=== PATIENT | male | born 1970 | race Caucasian/White ===

== ENCOUNTER 2017-05-06 12:33 | Emergency (ER) | payer SELFPAY ==
[~2017-05-06] VITALS: Ht 188 cm; Wt 105.2 kg
[~2017-05-06 12:33] MED LIST: AMPH20TA2 PO; DIPH-437 PO; ESCI10TA17 PO; LORA-741 PO; TAMS0.4C38 PO
[2017-05-06 12:36] VITALS: TEMP 36.9; Ht 188 cm; Wt 105.2 kg
--- NOTE | 2017-05-06 13:25 | EMERGENCY ROOM VISIT NOTE ---
ED Visit Note First contact with patient: 12:46 CHIEF COMPLAINT: Skin avulsion of left thumb HISTORY OF PRESENT ILLNESS: Patient is a [id number] 46-year-old white male who presents emergency department for evaluation of a skin avulsion to the left thumb that he sustained just prior to arrival. He was cutting tomatoes, when he accidentally cut the tip of the left thumb. The bleeding has been continuous since then as a steady ooze and won't stop with prolonged direct pressure. There is mild constant pain. REVIEW OF SYSTEMS: Review of systems as per HPI. All other systems reviewed were negative. At least 6 systems reviewed. PMH: Electronic medical records are reviewed and summarized as above/below. See Problem List. Tetanus is up-to-date. SOCIAL HISTORY: Patient lives at home. Employed. Nonsmoker. PHYSICAL EXAM: Vital Signs: Reviewed Nurse's notes. There is a soft tissue skin avulsion of the ulnar aspect tip of the left thumb. There is no nailbed involvement. It is bleeding slowly and steadily and the rate of bleeding is not decreasing after pressure. EMERGENCY DEPARTMENT COURSE: The finger was cleansed thoroughly with saline. Finger tourniquet was applied. Hemostasis was maintained. The skin avulsion was covered with Dermabond 3 layers. Hemostasis was maintained after the tourniquet was removed. Wound care measures were discussed. Medication reconciliation: I attest that I have personally reviewed the patient' s current medication list. Blood pressure screening: Patient was found to have a slightly elevated blood pressure due to circumstances. I do not believe that the patient requires hypertension monitoring. Problem List Medical Problems: (1) Chronic sinusitis Status: Resolved (2) Concussion Status: Resolved (3) Dehydration Status: Chronic (4) Diaphoresis Status: Resolved (5) Flank pain Status: Resolved (6) Flank pain Status: Resolved (7) Fracture of fifth toe, left, closed Status: Resolved (8) Headache Status: Resolved (9) Headache Status: Resolved (10) Kidney stone Status: Chronic (11) Kidney stone Status: Resolved (12) Nephrolithiasis Status: Resolved (13) Palpitations Status: Resolved (14) Stroke Status: Resolved Current/Historical Medications No Active Prescriptions or Reported Meds Allergies Uncoded Allergies: IODINE CONTRAST (Allergy, Severe, ANAPHYLAXIS, 03/03/16) Vital Signs Date Time Temp Pulse Resp B/P (MAP) Pulse Ox O2 Delivery O2 Flow Rate FiO2 9/15/17 12:36 36.9 104 20 142/93 95 Room Air Departure Information Impression Primary Impression: Avulsion of skin of finger Prescriptions No Active Prescriptions or Reported Meds Referrals No Doctor, Assigned (PCP) Patient Instructions ED Laceration Ext Skin Glue, [facility] Additional Instructions Read DermaBond handout. Ice and elevate for swelling and pain. Ibuprofen 600 mg and Tylenol 1000 mg every 6 hrs for pain. Problem Qualifiers Primary Impression: Avulsion of skin of finger Encounter type: initial encounter Qualified Codes: S61.209A - Unspecified open wound of unspecified finger without damage to nail, initial encounter
[2017-05-06 14:20] VITALS: BP 148/115; PULSE 106; O2SAT 94
== END 2017-05-06 14:20 | disposition home or self-care (01) ==
LOC: C.EDB 12:34 → C.EDD 14:20
DX: S61.012A Laceration without foreign body of left thumb without damage to nail, initial encounter (principal); W45.8XXA Other foreign body or object entering through skin, initial encounter; Z87.81 Personal history of (healed) traumatic fracture; Z87.820 Personal history of traumatic brain injury; Z87.442 Personal history of urinary calculi; Z82.3 Family history of stroke; Z91.041 Radiographic dye allergy status

== ENCOUNTER 2018-03-20 06:12 | Emergency (ER) | payer SELFPAY ==
[~2018-03-20] VITALS: Ht 182.9 cm; Wt 112.1 kg
[2018-03-20 06:12] VITALS: TEMP 36.6; Ht 182.9 cm; Wt 112.1 kg
[2018-03-20] MEDS ORDERED: ONDANSETRON INJ 2 MG/ML 2 ML VIAL IV STA (06:38)
[2018-03-20] MEDS ORDERED: KETOROLAC TROMETHAMINE 30 MG/ML VIAL IV STA (06:38)
[2018-03-20] MEDS ORDERED: SODIUM CHLORIDE 0.9% 1000ML 1,000 ML IV STA (06:38)
[2018-03-20] MEDS ORDERED: FENTANYL CITRATE INJ 50 MCG/1 ML 2 ML VIAL IV STA ×2 (06:38→08:43)
[2018-03-20 07:02] LABS: BASO % 0.4 %; BASO ABS # 0.04 K/uL (0-0.2); EOS % 3.1 %; EOS ABS # 0.29 K/uL (0-0.5); HEMATOCRIT 43.1 % (42-52); HEMOGLOBIN 14.6 g/dL (14.0-18.0); IG# 0.04 K/uL (0.00-0.02); LYMPH % 42.3 %; LYMPH ABS # 3.96 K/uL (1.2-3.4); MEAN CELL VOLUME 87.8 fL (80-100); MEAN CORPUSCULAR HEMOGLOBIN 29.7 pg (25-34); MEAN CORPUSCULAR HGB CONC 33.9 g/dl (32-36); MEAN PLATELET VOLUME 10.2 fL (7.4-10.4); MONO % 10.3 %; MONO ABS # 0.96 K/uL (0.11-0.59); NEUT % 43.5 %; NEUT ABS # 4.07 K/uL (1.4-6.5); PLATELET COUNT 230 K/uL (130-400); WHITE BLOOD COUNT 9.36 K/uL (4.8-10.8)
[2018-03-20 07:19] LABS: ALBUMIN 3.6 gm/dl (3.4-5.0); ALKALINE PHOSPHATASE 68 U/L (45-117); ALT/SGPT 30 U/L (12-78); AST/SGOT 20 U/L (15-37); BLOOD UREA NITROGEN 17 mg/dl (7-18); CALCIUM 9.1 mg/dl (8.5-10.1); CARBON DIOXIDE 23 mmol/L (21-32); GLUCOSE 111 mg/dl (70-99); LIPASE 211 U/L (73-393); POTASSIUM 4.1 mmol/L (3.5-5.1); SODIUM 143 mmol/L (136-145); TOTAL PROTEIN 7.1 gm/dl (6.4-8.2)
--- NOTE | 2018-03-20 07:43 | DIAGNOSTIC IMAGING REPORT ---
ABD/PELVIS WITHOUT FOR STONE HISTORY: 47 years-old Male flank pain acute right-sided flank pain with history of kidney stones COMPARISON: Renal ultrasound 02/08/2015, CT abdomen and pelvis 09/21/2013 TECHNIQUE: Multiple axial CT images of the abdomen and pelvis were obtained without the use of IV contrast. A dose lowering technique was used consistent with the principals of JERMAIN. FINDINGS: Mild dependent subsegmental bibasilar atelectasis. No pneumatosis or pneumoperitoneum. Coronary arterial calcifications are noted. Imaged inferior cardiac chambers are otherwise unremarkable. Gallbladder, liver, spleen, pancreas and adrenal glands are unremarkable. Multiple nonobstructing left nephrolithiasis measuring up to 3 mm. There is moderate right-sided hydroureteronephrosis secondary to a 6 x 6 x 6 mm calculus of the mid right ureter seen at the level of L3-L4. Additionally, there is reactive perinephric and periureteral inflammatory stranding. Calcifications of the central prostate. Bladder is unremarkable. Mild calcification of the aorta. Scattered nonenlarged periaortic lymph nodes are likely physiologic. There is no bowel obstruction or focal bowel wall thickening. Mild colonic diverticulosis without diverticulitis. Normal appendix. Stool-filled loops of terminal ileum are noted. The soft tissues are unremarkable. Bones appear to be intact. Multilevel facet arthropathy. Mild intervertebral disc space narrowing with posterior disc osteophyte complex formation at L5-S1. Posterior disc osteophyte complex also seen at L4-L5. IMPRESSION: 1. Moderate right-sided hydroureteronephrosis secondary to a 6 mm calculus of the mid right ureter at the level of L3-L4. 2. Nonobstructing left nephrolithiasis. 3. Colonic diverticulosis without diverticulitis. 4. Normal appendix. 5. Coronary arterial disease. The above report was generated using voice recognition software. It may contain grammatical, syntax or spelling errors. Electronically signed by: Jaime Vergara M.D. 03/20/2018 7:42 AM Dictated Date/Time: 03/20/2018 7:17 AM
[2018-03-20] MEDS ORDERED: OXYC-57 PO (08:33)
[2018-03-20] MEDS ORDERED: TAMS0.4C38 PO (08:33)
--- NOTE | 2018-03-20 08:36 | EMERGENCY ROOM VISIT NOTE ---
History Report prepared by Tatiannaibjose francisco: Uday Salas Under the Supervision of: Dr. Mikal Moraes D.O. First contact with patient: 06:31 Chief Complaint: FLANK PAIN Stated Complaint: FLANK PAIN History of Present Illness The patient is a 47 year old male who presents to the Emergency Room with complaints of waxing and waning right sided flank pain that onset at 0400 this morning, 2.5 hours prior to arrival. The patient states that "I have had kidney stones for a long time." "But this one is just really bad." He states that this morning his pain was an 8/10, and he has been nauseous as well. He did not vomit at all. The patient adds that he has been passing a lot of stones lately. He is from [place] and does not have a urologist in [place]. Source of History: patient Onset: 2.5 hours prior to arrival Position: back (right flank) Symptom Intensity: 8/10 Timing: waxes/wanes Associated Symptoms: + nausea, No vomiting Review of Systems See HPI for pertinent positives & negatives. A total of 10 systems reviewed and were otherwise negative. Past Medical & Surgical Medical Problems: (1) Chronic sinusitis (2) Concussion (3) Dehydration (4) Diaphoresis (5) Flank pain (6) Flank pain (7) Fracture of fifth toe, left, closed (8) Headache (9) Headache (10) Kidney stone (11) Kidney stone (12) Nephrolithiasis (13) Palpitations (14) Stroke Family History FH: heart attack No pertinent family history Social History Smoking Status: Never Smoker Alcohol Use: occasionally Marital Status: Housing Status: lives with significant other Occupation Status: employed Current/Historical Medications No Active Prescriptions or Reported Meds Allergies Coded Allergies: Iodinated Diagnostic Agents (Verified Allergy, Severe, ANAPHYLAXIS, ) Physical Exam Vital Signs Date Time Temp Pulse Resp B/P (MAP) Pulse Ox O2 Delivery O2 Flow Rate FiO2 03/20/18 07:56 57 03/20/18 07:37 59 20 134/94 97 Room Air 03/20/18 07:01 53 20 162/112 94 Room Air 03/20/18 06:12 36.6 61 16 161/109 97 Room Air Physical Exam CONSTITUTIONAL/VITAL SIGNS: Reviewed / noted above. GENERAL: Non-toxic in appearance. INTEGUMENTARY: Warm, dry, and [place]. HEAD: Normocephalic. EYES: without scleral icterus or trauma. ENT/OROPHARYNX: clear and moist. LYMPHADENOPATHY/NECK: Is supple without lymphadenopathy or meningismus. RESPIRATORY: Lungs clear and equal. CARDIOVASCULAR: Regular rate and rhythm. GI/ABDOMEN: Soft. Mild right sided abdominal tenderness. No organomegaly or pulsatile mass. No rebound or guarding. Normal bowel sounds. EXTREMITIES: Warm and well perfused. BACK: There is right CVA tenderness. NEUROLOGICAL: Intact without focal deficits. PSYCHIATRIC: normal affect. MUSCULOSKELETAL: Normally developed with good muscle tone. Medical Decision & Procedures ER Provider Diagnostic Interpretation: Radiology results as stated below per my review and radiologist interpretation: ABD/PELVIS WITHOUT FOR STONE HISTORY: 47 years-old Male flank pain acute right-sided flank pain with history of kidney stones COMPARISON: Renal ultrasound 02/08/2015, CT abdomen and pelvis 09/21/2013 TECHNIQUE: Multiple axial CT images of the abdomen and pelvis were obtained without the use of IV contrast. A dose lowering technique was used consistent with the principals of ALARA. FINDINGS: Mild dependent subsegmental bibasilar atelectasis. No pneumatosis or pneumoperitoneum. Coronary arterial calcifications are noted. Imaged inferior cardiac chambers are otherwise unremarkable. Gallbladder, liver, spleen, pancreas and adrenal glands are unremarkable. Multiple nonobstructing left nephrolithiasis measuring up to 3 mm. There is moderate right-sided hydroureteronephrosis secondary to a 6 x 6 x 6 mm calculus of the mid right ureter seen at the level of L3-L4. Additionally, there is reactive perinephric and periureteral inflammatory stranding. Calcifications of the central prostate. Bladder is unremarkable. Mild calcification of the aorta. Scattered nonenlarged periaortic lymph nodes are likely physiologic. There is no bowel obstruction or focal bowel wall thickening. Mild colonic diverticulosis without diverticulitis. Normal appendix. Stool-filled loops of terminal ileum are noted. The soft tissues are unremarkable. Bones appear to be intact. Multilevel facet arthropathy. Mild intervertebral disc space narrowing with posterior disc osteophyte complex formation at L5-S1. Posterior disc osteophyte complex also seen at L4-L5. IMPRESSION: 1. Moderate right-sided hydroureteronephrosis secondary to a 6 mm calculus of the mid right ureter at the level of L3-L4. 2. Nonobstructing left nephrolithiasis. 3. Colonic diverticulosis without diverticulitis. 4. Normal appendix. 5. Coronary arterial disease. The above report was generated using voice recognition software. It may contain grammatical, syntax or spelling errors. Electronically signed by: Jaime Vergara M.D. 03/20/2018 7:42 AM Dictated Date/Time: 03/20/2018 7:17 AM Laboratory Results 03/20/18 06:50 Red Blood Count 4.91, Mean Corpuscular Volume 87.8, Mean Corpuscular Hemoglobin 29.7, Mean Corpuscular Hemoglobin Concent 33.9, Mean Platelet Volume 10.2, Neutrophils (%) (Auto) 43.5, Lymphocytes (%) (Auto) 42.3, Monocytes (%) (Auto) 10.3, Eosinophils (%) (Auto) 3.1, Basophils (%) (Auto) 0.4, Neutrophils # (Auto ) 4.07, Lymphocytes # (Auto) 3.96, Monocytes # (Auto) 0.96, Eosinophils # (Auto ) 0.29, Basophils # (Auto) 0.04 03/20/18 06:50 Test 03/20/18 06:50 03/20/18 07:25 White Blood Count 9.36 K/uL (4.8-10.8) Red Blood Count 4.91 M/uL (4.7-6.1) Hemoglobin 14.6 g/dL (14.0-18.0) Hematocrit 43.1 % (42-52) Mean Corpuscular Volume 87.8 fL (80-100) Mean Corpuscular Hemoglobin 29.7 pg (25-34) Mean Corpuscular Hemoglobin Concent 33.9 g/dl (32-36) Platelet Count 230 K/uL (130-400) Mean Platelet Volume 10.2 fL (7.4-10.4) Neutrophils (%) (Auto) 43.5 % Lymphocytes (%) (Auto) 42.3 % Monocytes (%) (Auto) 10.3 % Eosinophils (%) (Auto) 3.1 % Basophils (%) (Auto) 0.4 % Neutrophils # (Auto) 4.07 K/uL (1.4-6.5) Lymphocytes # (Auto) 3.96 K/uL (1.2-3.4) Monocytes # (Auto) 0.96 K/uL (0.11-0.59) Eosinophils # (Auto) 0.29 K/uL (0-0.5) Basophils # (Auto) 0.04 K/uL (0-0.2) RDW Standard Deviation 45.0 fL (36.4-46.3) RDW Coefficient of Variation 14.0 % (11.5-14.5) Immature Granulocyte % (Auto) 0.4 % Immature Granulocyte # (Auto) 0.04 K/uL (0.00-0.02) Anion Gap 9.0 mmol/L (3-11) Est Creatinine Clear Calc Drug Dose 120.6 ml/min Estimated GFR () 104.9 Estimated GFR (Non- 90.5 BUN/Creatinine Ratio 16.9 (10-20) Calcium Level 9.1 mg/dl (8.5-10.1) Total Bilirubin 0.3 mg/dl (0.2-1) Direct Bilirubin < 0.1 mg/dl (0-0.2) Aspartate Amino Transf (AST/SGOT) 20 U/L (15-37) Alanine Aminotransferase (ALT/SGPT) 30 U/L (12-78) Alkaline Phosphatase 68 U/L (45-117) Total Protein 7.1 gm/dl (6.4-8.2) Albumin 3.6 gm/dl (3.4-5.0) Lipase 211 U/L (73-393) Urine Color YELLOW Urine Appearance CLEAR (CLEAR) Urine pH 6.0 (4.5-7.5) Urine Specific [place] 1.023 (1.000-1.030) Urine Protein NEG (NEG) Urine Glucose (UA) NEG (NEG) Urine Ketones NEG (NEG) Urine Occult Blood 3+ (NEG) Urine Nitrite NEG (NEG) Urine Bilirubin NEG (NEG) Urine Urobilinogen NEG (NEG) Urine Leukocyte Esterase NEG (NEG) Urine WBC (Auto) 1-5 /hpf (0-5) Urine RBC (Auto) >30 /hpf (0-4) Urine Hyaline Casts (Auto) 1-5 /lpf (0-5) Urine Epithelial Cells (Auto) 5-10 /lpf (0-5) Urine Bacteria (Auto) NEG (NEG) Laboratory results as stated above per my review. Medications Administered Medications (Trade) Dose Ordered Sig/Denisa Route Start Time Stop Time Status Last Admin Dose Admin Sodium Chloride 1,000 ml @ 999 mls/hr Q1H1M STAT IV 03/20/18 06:38 03/20/18 07:38 DC 03/20/18 06:55 999 MLS/HR Fentanyl Citrate (Fentanyl Inj) 100 mcg NOW STAT IV 03/20/18 06:38 03/20/18 06:39 DC 03/20/18 06:55 100 MCG Ondansetron HCl (Zofran Inj) 4 mg NOW STAT IV 03/20/18 06:38 03/20/18 06:39 DC 03/20/18 06:55 4 MG Ketorolac Tromethamine (Toradol Inj) 30 mg NOW STAT IV 03/20/18 06:38 03/20/18 06:39 DC 03/20/18 07:01 30 MG ED Course 0634: Previous medical records were reviewed. The patient was evaluated in room B6. A complete history and physical examination was performed. 0638: Ordered Toradol 30 mg IV, Zofran 4 mg IV, Fentanyl 100 mcg IV, Sodium Chloride 1000 mL @ 999 mL/hr IV. 0830: On reevaluation, the patient is resting in bed. I discussed the results and findings with the patient. He verbalized agreement of the treatment plan. The patient was discharged home. Medical Decision Differential diagnosis: Etiologies such as renal colic, appendicitis, diverticulitis, mesenteric ischemia, aortic pathology, infections, inflammatory bowel disease, PUD, biliary pathology, UTI, as well as others were entertained. This is a 47-year-old male who presents to the ED with a chief complaint of kidney stones. The patient states that he has been passing stones a lot lately. He states today was a severe episode and had to call EMS. EMS provided morphine IV as well as Zofran IV. The patient reports that his pain is on the right side and started around 4 AM. He had associated nausea. Denies any fevers. No other symptoms. Initial blood pressure was elevated at 161/109. The patient states that he is not around here. He is from [place] and does not have [place] and does not have a local urologist or doctor. CT scan revealed a 6 mm calculus in the mid right ureter with some moderate right hydronephrosis. CBC, complete metabolic panel did not show abnormality. Urine showed 3+ blood. He was treated with IV Toradol, IV fentanyl and IV Zofran as well as IV fluids. He was feeling better. He was discharged with a prescription for Percocet. He will continue ibuprofen. Flomax was also prescribed. He states that he has passed stones larger than this. He will return for any concerns or worsening. Medication Reconcilliation Current Medication List: was personally reviewed by me Blood Pressure Screening Patient's blood pressure: Elevated blood pressure Blood pressure disposition: Elevated BP felt to be situational Impression Primary Impression: Renal colic Additional Impression: Ureteral calculus, right Scribe Attestation The scribe's documentation has been prepared under my direction and personally reviewed by me in its entirety. I confirm that the note above accurately reflects all work, treatment, procedures, and medical decision making performed by me. Departure Information Dispostion Home / Self-Care Prescriptions Oxycodone/Acetaminophen 5MG/325MG (PERCOCET 5MG/325MG) Tab 1 TAB PO Q6H Y for Pain, #20 TAB Prov: Mikal Moraes D.O. 03/20/18 Tamsulosin Hcl (FLOMAX) 0.4 Mg Cap 0.4 MG PO HS, #10 CAP Prov: Mikal Moraes D.O. 03/20/18 Referrals No Doctor, Assigned (PCP) Patient Instructions My [facility] Additional Instructions Flomax as prescribed to help stone passage. Percocet as prescribed. No driving within 6 hours of use. Do not take additional Tylenol while taking Percocet. Take ibuprofen every 6 hours as needed for pain. 400-600 mg to be taken. Strain urine for stone. Follow-up with your doctor for further care and evaluation in 1-2 days if not better. Return to the emergency department for worsening or new symptoms or any concerns. You have been examined and treated today on an emergency basis only. This is not a substitute for, or an effort to provide, complete comprehensive medical care. It is impossible to recognize and treat all injuries or illnesses in a single emergency department visit. It is therefore important that you follow up closely with your doctor. Call as soon as possible for an appointment. Problem Qualifiers
[2018-03-20 08:55] VITALS: BP 138/89; PULSE 72; O2SAT 96
== END 2018-03-20 08:59 | disposition home or self-care (01) ==
LOC: EDBD 06:12 → C.EDB 06:13
DX: N13.2 Hydronephrosis with renal and ureteral calculous obstruction (principal); R11.0 Nausea; Z88.8 Allergy status to other drugs, medicaments and biological substances

== ENCOUNTER 2018-04-04 16:46 | Emergency (ER) | payer SELFPAY ==
[~2018-04-04] VITALS: Ht 182.9 cm; Wt 110.2 kg
[~2018-04-04 16:46] MED LIST changes: -AMPH20TA2 PO; -DIPH-437 PO; -ESCI10TA17 PO; -LORA-741 PO; +OXYC-57 PO; -TAMS0.4C38 PO
[2018-04-04 16:50] VITALS: Ht 182.9 cm; Wt 110.2 kg
[2018-04-04] MEDS ORDERED: SODIUM CHLORIDE 0.9% 1000ML 1,000 ML IV STA (17:00)
[2018-04-04] MEDS ORDERED: ONDANSETRON INJ 2 MG/ML 2 ML VIAL IV STA (17:03)
[2018-04-04] MEDS ORDERED: FENTANYL CITRATE INJ 50 MCG/1 ML 2 ML VIAL IV STA (17:03)
--- NOTE | 2018-04-04 17:18 | EMERGENCY ROOM VISIT NOTE ---
History First contact with patient: 16:52 Chief Complaint: KIDNEY STONE Stated Complaint: KIDNEY STONE History of Present Illness The patient is a 47 year old male who presents to the Emergency Room via private vehicle accompanied by female with complaints of "kidney stone". The patient notes a strong past medical history of renal calculi. He notes that he has had these since he was a teenager. He was here about 2 weeks ago notes that he had a 6 mm stone. It took a moment to pass this. He presents to stone with him believing that he passed it. He was doing okay until today around noontime when he notes that he began with right flank pain higher up than normal. He rates the pain as a 6/10. He is concerned that will worsen. He denies any fevers, chills, dysuria. He notes that he has had numerous stones and this feels similar. Review of Systems A complete 10-point Review of Systems was discussed with the patient, with pertinent positives and negatives listed in the History of Present Illness. All remaining Review of Systems questions can be considered negative unless otherwise specified. Past Medical/Surgical History Medical Problems: (1) Chronic sinusitis (2) Concussion (3) Dehydration (4) Diaphoresis (5) Flank pain (6) Flank pain (7) Fracture of fifth toe, left, closed (8) Headache (9) Headache (10) Kidney stone (11) Kidney stone (12) Nephrolithiasis (13) Palpitations (14) Stroke Family History FH: heart attack No pertinent family history Social History Smoking Status: Never Smoker Alcohol Use: occasionally Marital Status: Housing Status: lives with significant other Occupation Status: employed Current/Historical Medications Scheduled Tamsulosin Hcl (Flomax), 0.4 MG PO DAILY Scheduled PRN Oxycodone Ir (Roxicodone Ir), 1 TAB PO Q4H PRN for Pain Physical Exam Vital Signs Date Time Temp Pulse Resp B/P (MAP) Pulse Ox O2 Delivery O2 Flow Rate FiO2 04/04/18 18:30 36.8 69 18 150/100 99 04/04/18 16:50 36.8 69 18 152/80 99 Room Air Physical Exam VITAL SIGNS - Vital signs and nursing notes were reviewed. Stable. Afebrile. GENERAL -47-year-old male appearing his stated age who is in no acute distress. Communicates well with provider and answers questions appropriately. SKIN - Without rashes. No meningeal or petechial rash. HEAD - NC/AT. EYES -Sclera anicteric. EARS - No deformities of external structures noted on gross examination bilaterally. NOSE - Midline and without cyanosis. No epistaxis or purulent drainage noted. MOUTH/OROPHARYNX - Without perioral cyanosis. ABDOMEN - Abdominal contour normal without pulsations or visible masses. BS normoactive all four quadrants. No tenderness, palpable masses, hepatosplenomegaly, or ascites noted. EXTREMITIES - No clubbing or peripheral cyanosis. No pretibial edema present. NEUROLOGIC - Cranial nerves II through XII grossly intact. Sensory intact to light touch throughout. Medical Decision & Procedures ER Provider Diagnostic Interpretation: (OMAR/BLAD)RETROPERITON COMP HISTORY: Flank pain R flank pain COMPARISON: CT 03/20/2018 FINDINGS: Right kidney: Moderate hydronephrosis unchanged in the prior exam. Normal corticomedullary differentiation and cortical thickness. Left kidney: No hydronephrosis. Normal corticomedullary differentiation and cortical thickness. Bladder: No bladder wall thickening. The bilateral ureteral jets were identified. IMPRESSION: Moderate right renal hydronephrosis unchanged from the prior exam. The above report was generated using voice recognition software. It may contain grammatical, syntax or spelling errors. Electronically signed by: Amish Cat M.D. 04/04/2018 5:58 PM Dictated Date/Time: 04/04/2018 5:57 PM KUB CLINICAL HISTORY: R flank pain pain COMPARISON STUDY: 02/08/2015 FINDINGS: Nonobstructive bowel pattern. 5 mm distal right ureteral calculus. Punctate calcifications overlying the upper pole left kidney considered nonobstructive. IMPRESSION: 5 mm distal right ureteral calculus. The above report was generated using voice recognition software. It may contain grammatical, syntax or spelling errors. Electronically signed by: Amish Cat M.D. 04/04/2018 6:07 PM Dictated Date/Time: 04/04/2018 6:06 PM Laboratory Results 04/04/18 17:10 Red Blood Count 4.73, Mean Corpuscular Volume 88.6, Mean Corpuscular Hemoglobin 29.8, Mean Corpuscular Hemoglobin Concent 33.7, Mean Platelet Volume 10.0, Neutrophils (%) (Auto) 57.5, Lymphocytes (%) (Auto) 33.4, Monocytes (%) (Auto) 6.5, Eosinophils (%) (Auto) 2.1, Basophils (%) (Auto) 0.2, Neutrophils # (Auto) 5.30, Lymphocytes # (Auto) 3.08, Monocytes # (Auto) 0.60, Eosinophils # (Auto) 0.19, Basophils # (Auto) 0.02 04/04/18 17:10 Test 04/04/18 17:05 04/04/18 17:10 Urine Color YELLOW Urine Appearance CLEAR (CLEAR) Urine pH 5.0 (4.5-7.5) Urine Specific [place] 1.017 (1.000-1.030) Urine Protein NEG (NEG) Urine Glucose (UA) NEG (NEG) Urine Ketones NEG (NEG) Urine Occult Blood 2+ (NEG) Urine Nitrite NEG (NEG) Urine Bilirubin NEG (NEG) Urine Urobilinogen NEG (NEG) Urine Leukocyte Esterase NEG (NEG) Urine WBC (Auto) 1-5 /hpf (0-5) Urine RBC (Auto) >30 /hpf (0-4) Urine Hyaline Casts (Auto) 0 /lpf (0-5) Urine Epithelial Cells (Auto) 0-5 /lpf (0-5) Urine Bacteria (Auto) NEG (NEG) White Blood Count 9.22 K/uL (4.8-10.8) Red Blood Count 4.73 M/uL (4.7-6.1) Hemoglobin 14.1 g/dL (14.0-18.0) Hematocrit 41.9 % (42-52) Mean Corpuscular Volume 88.6 fL (80-100) Mean Corpuscular Hemoglobin 29.8 pg (25-34) Mean Corpuscular Hemoglobin Concent 33.7 g/dl (32-36) Platelet Count 237 K/uL (130-400) Mean Platelet Volume 10.0 fL (7.4-10.4) Neutrophils (%) (Auto) 57.5 % Lymphocytes (%) (Auto) 33.4 % Monocytes (%) (Auto) 6.5 % Eosinophils (%) (Auto) 2.1 % Basophils (%) (Auto) 0.2 % Neutrophils # (Auto) 5.30 K/uL (1.4-6.5) Lymphocytes # (Auto) 3.08 K/uL (1.2-3.4) Monocytes # (Auto) 0.60 K/uL (0.11-0.59) Eosinophils # (Auto) 0.19 K/uL (0-0.5) Basophils # (Auto) 0.02 K/uL (0-0.2) RDW Standard Deviation 44.5 fL (36.4-46.3) RDW Coefficient of Variation 13.7 % (11.5-14.5) Immature Granulocyte % (Auto) 0.3 % Immature Granulocyte # (Auto) 0.03 K/uL (0.00-0.02) Anion Gap 7.0 mmol/L (3-11) Est Creatinine Clear Calc Drug Dose 109.7 ml/min Estimated GFR () 94.5 Estimated GFR (Non- 81.5 BUN/Creatinine Ratio 13.9 (10-20) Calcium Level 8.7 mg/dl (8.5-10.1) Medications Administered Medications (Trade) Dose Ordered Sig/Denisa Route Start Time Stop Time Status Last Admin Dose Admin Sodium Chloride 1,000 ml @ 999 mls/hr Q1H1M STAT IV 04/04/18 17:00 04/04/18 18:00 DC 04/04/18 17:34 999 MLS/HR Fentanyl Citrate (Fentanyl Inj) 50 mcg NOW STAT IV 04/04/18 17:03 04/04/18 17:04 DC 04/04/18 17:34 50 MCG Ondansetron HCl (Zofran Inj) 4 mg NOW STAT IV 04/04/18 17:03 04/04/18 17:04 DC 04/04/18 17:34 4 MG Morphine Sulfate (MoRPHine SULFATE INJ) 8 mg NOW STAT IV 04/04/18 18:12 04/04/18 18:13 DC 04/04/18 18:23 8 MG Medical Decision Patient was seen and evaluated as above in room C7. Review was performed of nursing notes and vital signs. After obtaining a thorough history and physical examination the above work up was performed. He presents to us today with right flank pain. Blood work reveals no leukocytosis or concerning anemia. No emergent metabolic abnormality. No kidney failure. Urine reveals blood but no infection. He notes that he is passed over 200 kidney stones over the years. He notes a strong history of these. He was seen here 2 weeks ago and notes that he passed the stone about 1 week ago which she was seen here for. He then began today around noontime with more right flank pain. KUB and ultrasound were obtained. There is a 5 mm obstructing stone. Moderate hydro-noted. Patient's pain was controlled here with morphine and fentanyl. He was given fluids. He will be discharged home with Flomax, oxycodone and is to follow with family doctor/urology. No red flags in the [place] drug monitoring system. Through talking with the patient we believe he is stable for outpatient management. The patient was educated upon management, educated upon todays findings/results, educated upon symptoms in which to return, had questions answered prior to discharge, and was discharged home in good condition. In the evaluation and treatment of this patient the following differential diagnoses were entertained: Renal calculi, AAA, appendicitis, pyelonephritis, among others. Impression Primary Impression: Right flank pain Additional Impression: 5mm ureteral calculus Departure Information Dispostion Home / Self-Care Condition GOOD Prescriptions Tamsulosin Hcl (FLOMAX) 0.4 Mg Cap 0.4 MG PO DAILY for 10 Days, #10 CAP Prov: Simón Layton PA-C 04/04/18 Oxycodone Ir (Roxicodone Ir) 5 Mg Tab 1 TAB PO Q4H Y for Pain, #18 TAB For Initial Treatment Prov: Simón Layton PA-C 04/04/18 Referrals No Doctor, Assigned (PCP) Odette Snyder MD Patient Instructions [facility] Additional Instructions You have been treated in the Emergency Department today for a Kidney Stone ( Nephrolithiasis). You have received pain medicine in the emergency department which impairs your ability to operate a vehicle. It is illegal for you to drive after receiving these medicines. You have been prescribed Oxy IR to be used for pain control. This is a narcotic medication. You cannot drive or consume alcohol while on this medicine. This medicine should only be used for pain that cannot be controlled with over-the- counter pain medicines. You have been prescribed Flomax 0.4 mg to be taken ONCE daily. This medicine has been prescribed as it can help relax the smooth muscles of the urinary tract increasing transit time of the kidney stone. Please only take this until you pass the stone. For pain control, you can use the following [id number] medicines (if >12 yo): - Regular strength (325mg/tab) Tylenol (acetaminophen) 2 tabs every 4-6 hours as needed. Do not exceed 12 tablets in a 24 hour period. Avoid taking more than 3 grams (3000 mg) of Tylenol per day. This includes any other sources of acetaminophen you may take on a regular basis. - Regular strength (200 mg/tab) Advil (ibuprofen) 1-2 tabs every 4-6 hours as needed. Do not exceed a dose of 3200 mg per day. Please do not also take this with naproxen as these are very similar medications. Please strain all urine to collect stone. I do recommend you follow-up with the family doctor as well as urology. Please call them as soon as possible schedule follow-up Return to the Emergency Department if your symptoms persist despite the treatment plan outlined above or if you develop the following symptoms: intractable pain, fever, chills, or large amounts of blood in your urine. Problem Qualifiers
[2018-04-04 17:21] LABS: BASO % 0.2 %; BASO ABS # 0.02 K/uL (0-0.2); EOS % 2.1 %; EOS ABS # 0.19 K/uL (0-0.5); HEMATOCRIT 41.9 % (42-52); HEMOGLOBIN 14.1 g/dL (14.0-18.0); IG# 0.03 K/uL (0.00-0.02); LYMPH % 33.4 %; LYMPH ABS # 3.08 K/uL (1.2-3.4); MEAN CELL VOLUME 88.6 fL (80-100); MEAN CORPUSCULAR HEMOGLOBIN 29.8 pg (25-34); MEAN CORPUSCULAR HGB CONC 33.7 g/dl (32-36); MONO % 6.5 %; NEUT % 57.5 %; PLATELET COUNT 237 K/uL (130-400); RED CELL DISTRIBUTION WIDTH CV 13.7 % (11.5-14.5); RED CELL DISTRIBUTION WIDTH SD 44.5 fL (36.4-46.3); WHITE BLOOD COUNT 9.22 K/uL (4.8-10.8)
[2018-04-04 17:38] LABS: CALCIUM 8.7 mg/dl (8.5-10.1); CREATININE 1.09 mg/dl (0.60-1.40); POTASSIUM 3.9 mmol/L (3.5-5.1)
--- NOTE | 2018-04-04 17:59 | DIAGNOSTIC IMAGING REPORT ---
(OMAR/BLAD)RETROPERITON COMP HISTORY: Flank pain R flank pain COMPARISON: CT 03/20/2018 FINDINGS: Right kidney: Moderate hydronephrosis unchanged in the prior exam. Normal corticomedullary differentiation and cortical thickness. Left kidney: No hydronephrosis. Normal corticomedullary differentiation and cortical thickness. Bladder: No bladder wall thickening. The bilateral ureteral jets were identified. IMPRESSION: Moderate right renal hydronephrosis unchanged from the prior exam. The above report was generated using voice recognition software. It may contain grammatical, syntax or spelling errors. Electronically signed by: Amish Cat M.D. 04/04/2018 5:58 PM Dictated Date/Time: 04/04/2018 5:57 PM
--- NOTE | 2018-04-04 18:08 | DIAGNOSTIC IMAGING REPORT ---
KUB CLINICAL HISTORY: R flank pain pain COMPARISON STUDY: 02/08/2015 FINDINGS: Nonobstructive bowel pattern. 5 mm distal right ureteral calculus. Punctate calcifications overlying the upper pole left kidney considered nonobstructive. IMPRESSION: 5 mm distal right ureteral calculus. The above report was generated using voice recognition software. It may contain grammatical, syntax or spelling errors. Electronically signed by: Amish Cat M.D. 04/04/2018 6:07 PM Dictated Date/Time: 04/04/2018 6:06 PM
[2018-04-04] MEDS ORDERED: MoRPHine SULFATE 10 MG/ML CARP/VIAL IV STA (18:12)
[2018-04-04] MEDS ORDERED: OXYC-90 PO (18:21)
[2018-04-04] MEDS ORDERED: TAMS0.4C38 PO (18:21)
[2018-04-04 18:30] VITALS: BP 150/100; PULSE 69; TEMP 36.8; O2SAT 99
== END 2018-04-04 18:31 | disposition home or self-care (01) ==
LOC: C.EDB 16:48 → C.EDC 18:31
DX: N13.2 Hydronephrosis with renal and ureteral calculous obstruction (principal); R10.9 Unspecified abdominal pain